=== PATIENT | male | born 1970 | race Caucasian/White ===

== ENCOUNTER 2016-06-14 06:05 | Day surgery (SDC) | payer OTHER ==
--- NOTE | ~2016-06-14 | OP ---
Record Of Operation [facility] [address] [place]. 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 PROCEDURES: Right-sided C7-T1 laminoforaminotomy, use of operative microscope, minimal access spine technology, neuromonitoring, and intraoperative O-arm CT scan with computer navigation. SURGEON: Jimenez Corbin DO. ANESTHESIA: General. ESTIMATED BLOOD LOSS: 15 mL. COMPLICATIONS: None. INDICATIONS: The patient is a pleasant 46-year-old with intractable right arm pain and paresthesias, failed conservative treatment, and after discussion of the risks and benefits, elected to proceed with surgery. PROCEDURE IN DETAIL: I identified the patient in the holding area. Consent was obtained. Went to the operating room. Underwent general anesthesia with endotracheal intubation. Prepped and draped in the usual sterile fashion. Operative safety pause was performed, then we proceeded with surgery. The O-arm registration frame was attached to the head frame. O- arm was brought in for intraoperative CT scan. Computer registration materials were verified, and then under computer guidance, a longitudinal incision on the right side was made over the C7-T1 level. Tube dilators were used to minimally invasively dissect down to the right C7-T1 interspace. Operative microscope was brought in. A enrico was used to perform a laminoforaminotomy. Completed with a phyllis enrico. Kerrison removed remaining bone and ligamentum, and completed the laminoforaminotomy. The exiting C8 nerve root was identified. It was completely free of compression at this point. Irrigation was performed. Hemostasis was achieved. 40 mg of Depo-Medrol was injected over the nerve roots. Layered closure was performed. Sterile dressings were applied. The patient was awoken and extubated, and taken to the recovery room in stable condition. OPERATIVE FINDING: Severe stenosis of the right C8 nerve root. No sustained neuromonitoring alerts. JCE/MODL Record Of Operation [place] [id number]. [address] NAME: MECCA VALENZUELA : 70 [place]US : [place] [facility] [place] [id number] AGE: 46 ADM/REG DATE : 06/14/16 MR#: [id number] REPORT SERV DATE: 06/14/16 DICTATED BY: JIMENEZ CORBIN DATE: 06/14/16 REPORT STATUS : Draft TRANSCRIBED BY: NAY DATE: 06/14/16 Jimenez Corbin DO / [id number] CC: Jimenez Corbin DO
[~2016-06-14 06:05] MED LIST: ALLEGRA180 PO; MULTIPLE VIT PO; NASOCORT NAS; PREV15 PO; PROBIOTIC
== END 2016-06-14 14:50 | disposition home or self-care (01) ==
LOC: SDC 06:05
PROVIDERS: Orthopaedic Surgery
PROC: 01N10ZZ Release Cervical Nerve, Open Approach (ICD-10-PCS; principal; 2016-06-14 07:45)
DX: M48.03 Spinal stenosis, cervicothoracic region (principal); M54.13 Radiculopathy, cervicothoracic region; E11.9 Type 2 diabetes mellitus without complications; G47.30 Sleep apnea, unspecified; Z87.891 Personal history of nicotine dependence; Z79.899 Other long term (current) drug therapy; Z98.890 Other specified postprocedural states
CPT/HCPCS: 85014; 85018; 88304; 88311; A9270-GY; J0690; J1030; J1644; J2250; J2405; J2710; J3010; J3370